=== PATIENT | female | born 1995 | race Caucasian/White ===

== ENCOUNTER 2017-07-09 21:03 | Emergency (ER) | payer OTHER ==
[~2017-07-09] VITALS: Ht 172.7 cm; Wt 54.4 kg
[~2017-07-09 21:03] MED LIST: CIPR-345 PO; DEXL60CA6 PO; LOR5/325 PO
--- NOTE | 2017-07-09 21:08 | ER Report ---
History and Physical Time Seen By MD: 21:07 HPI/ROS CHIEF COMPLAINT: Difficulty swallowing HISTORY OF PRESENT ILLNESS: 22-year-old female presents ambulatory to the ER complaining of throat swelling and difficulty swallowing. She's been sick for approximately 2 days. She's been seen by her primary care physician twice. She says a rapid strep test was not performed. She was diagnosed with blood weeks. Angina. And placed on amoxicillin and prednisone. She's been taking ibuprofen and Tylenol without pain relief. She over the last 12 hours as noted significant increase in the swelling and difficulty swallowing. She denies any difficulty breathing. She denies any nausea or vomiting. REVIEW OF SYSTEMS: Respiratory: No cough, no dyspnea. Cardiovascular: No chest pain, no palpitations. Gastrointestinal: No vomiting, no abdominal pain. Musculoskeletal: No back pain. Allergies: Coded Allergies: No Known Drug Allergies (Unverified , 07/09/17) Home Meds Active Scripts Oxycodone Hcl/Acetaminophen (PERCOCET 5-325 MG TABLET) 1 Each Tablet, 1-2 EACH PO Q4-6H Y for PAIN, #12 Prov:JENNA COULTER DO 07/09/17 Clindamycin Hcl (CLINDAMYCIN HCL) 300 Mg Capsule, 300 MG PO TID for infection, # 20 CAPSULE TAKE 1 CAPSULE EVERY SIX HOURS Prov:JENNA COULTER DO 07/09/17 Reviewed Nurses Notes: Yes Old Medical Records Reviewed: Yes Hx Smoking: No Smoking Status: Never Smoker Constitutional Vital Sign - Last 24 Hours 07/09/17 07/09/17 07/09/17 07/09/17 21:12 21:13 21:18 21:30 Temp 98.4 Pulse 70 82 Resp 14 B/P (MAP) 128/90 128/90 (103) 134/82 (99) Pulse Ox 95 95 O2 Delivery Room Air 07/09/17 07/09/17 07/09/17 07/09/17 21:33 21:48 22:00 22:03 Pulse 75 77 84 B/P (MAP) 136/83 (100) Pulse Ox 95 95 95 07/09/17 07/09/17 07/09/17 07/09/17 22:08 22:23 22:28 22:30 Pulse ? B/P (MAP) 126/84 (98) 131/67 (88) 07/09/17 07/09/17 07/09/17 07/09/17 22:53 23:00 23:08 23:13 Pulse 69 75 71 B/P (MAP) 120/70 (87) Pulse Ox 96 95 96 07/09/17 07/09/17 07/09/17 07/09/17 23:28 23:30 23:35 23:42 Pulse 64 66 B/P (MAP) 115/75 (88) 116/74 (88) Pulse Ox 95 95 Physical Exam General Appearance: The patient is alert, has no immediate need for airway protection and no current signs of toxicity. Vital signs stable, afebrile, mild distress HEENT: Pupils equal and round no injection. TMs normal, TMJs nontender, examination of the oropharynx reveals moderate erythema with minimal edema, and cobblestoning of posterior oral pharynx is no exudate or petechiae noted. Palpation of the anterior neck reveals some tenderness, but no induration of the neck tissues or lymphadenopathy Respiratory: Chest is non tender, lungs are clear to auscultation. Cardiac: regular rate and rhythm Gastrointestinal: Abdomen is soft and non tender, no masses, bowel sounds normal. No sputum megaly Musculoskeletal: Neck: Neck is supple and non tender. As above Extremities have full range of motion and are non tender. Skin: No rashes or lesions. DIFFERENTIAL DIAGNOSIS: After history and physical exam differential diagnosis was considered for tonsillitis, peritonsillar abscess, acute pharyngitis, blood weeks, angina, soft tissue abscess Medical Decision Making Data Points Result Diagram: 07/09/17213407/09/172134 Laboratory Hematology Test 07/09/17 21:35 07/09/17 22:07 Red Blood Count 4.89 M/uL (4.17-5.56) Mean Corpuscular Volume 88.4 fL (80.0-96.0) Mean Corpuscular Hemoglobin 30.1 pg (26.0-33.0) Mean Corpuscular Hemoglobin Concent 34.1 g/dL (32.0-36.0) Red Cell Distribution Width 13.3 % (11.5-14.5) Mean Platelet Volume 7.7 fL (7.2-11.1) Neutrophils (%) (Auto) 70.2 % (39.4-72.5) Lymphocytes (%) (Auto) 20.2 % (17.6-49.6) Monocytes (%) (Auto) 8.1 % (4.1-12.4) Eosinophils (%) (Auto) 0.9 % (0.4-6.7) Basophils (%) (Auto) 0.6 % (0.3-1.4) Nucleated RBC Relative Count (auto) 0.1 /100WBC Neutrophils # (Auto) 5.6 K/uL (2.0-7.4) Lymphocytes # (Auto) 1.6 K/uL (1.3-3.6) Monocytes # (Auto) 0.7 K/uL (0.3-1.0) Eosinophils # (Auto) 0.1 K/uL (0.0-0.5) Basophils # (Auto) 0.0 K/uL (0.0-0.1) Nucleated RBC Absolute Count (auto) 0.00 K/uL Sodium Level 138 mmol/L (137-145) Potassium Level 3.9 mmol/L (3.5-5.0) Chloride Level 104 mmol/L (98-107) Carbon Dioxide Level 20 mmol/L (22-31) Blood Urea Nitrogen 12 mg/dl (7-18) Creatinine 0.80 mg/dl (0.52-1.04) Glomerular Filtration Rate Calc > 60.0 Random Glucose 77 mg/dl (75-110) Calcium Level 9.6 mg/dl (8.4-10.2) Total Bilirubin 0.9 mg/dl (0.2-1.3) Aspartate Amino Transf (AST/SGOT) 29 U/L (0-35) Alanine Aminotransferase (ALT/SGPT) 43 U/L (0-56) Alkaline Phosphatase 96 U/L (0-126) C-Reactive Protein < 0.5 mg/dl (<1.0) Total Protein 7.6 gm/dl (6.3-8.2) Albumin 4.4 g/dl (3.5-5.0) Human Chorionic Gonadotropin, Qual Negative (NEGATIVE) Urine Color Yellow Urine Clarity Cloudy Urine pH 5.0 pH (4.8-9.5) Urine Specific [place]er 1.030 Urine Protein Negative mg/dL (NEGATIVE) Urine Glucose (UA) Negative mg/dL (NEGATIVE) Urine Ketones 20 mg/dL (NEGATIVE) Urine Blood Small (NEGATIVE) Urine Nitrite Negative (NEGATIVE) Urine Bilirubin Negative (NEGATIVE) Urine Urobilinogen Negative mg/dL (0.2-1.9) Urine Leukocyte Esterase Trace (NEGATIVE) Urine RBC 15 /HPF (0-2/HPF) Urine WBC 4 /HPF (0-5/HPF) Urine Squamous Epithelial Cells Many /LPF (</=FEW) Urine Amorphous Crystals Few /HPF Urine Bacteria Few /HPF (NONE-FEW) Urine Mucus Few /HPF (NONE-FEW) Chemistry Test 07/09/17 21:35 07/09/17 22:07 White Blood Count 8.0 k/uL (4.5-11.0) Red Blood Count 4.89 M/uL (4.17-5.56) Hemoglobin 14.7 g/dL (12.0-16.0) Hematocrit 43.2 % (34.0-47.0) Mean Corpuscular Volume 88.4 fL (80.0-96.0) Mean Corpuscular Hemoglobin 30.1 pg (26.0-33.0) Mean Corpuscular Hemoglobin Concent 34.1 g/dL (32.0-36.0) Red Cell Distribution Width 13.3 % (11.5-14.5) Platelet Count 251 K/uL (150-450) Mean Platelet Volume 7.7 fL (7.2-11.1) Neutrophils (%) (Auto) 70.2 % (39.4-72.5) Lymphocytes (%) (Auto) 20.2 % (17.6-49.6) Monocytes (%) (Auto) 8.1 % (4.1-12.4) Eosinophils (%) (Auto) 0.9 % (0.4-6.7) Basophils (%) (Auto) 0.6 % (0.3-1.4) Nucleated RBC Relative Count (auto) 0.1 /100WBC Neutrophils # (Auto) 5.6 K/uL (2.0-7.4) Lymphocytes # (Auto) 1.6 K/uL (1.3-3.6) Monocytes # (Auto) 0.7 K/uL (0.3-1.0) Eosinophils # (Auto) 0.1 K/uL (0.0-0.5) Basophils # (Auto) 0.0 K/uL (0.0-0.1) Nucleated RBC Absolute Count (auto) 0.00 K/uL Glomerular Filtration Rate Calc > 60.0 Calcium Level 9.6 mg/dl (8.4-10.2) Total Bilirubin 0.9 mg/dl (0.2-1.3) Aspartate Amino Transf (AST/SGOT) 29 U/L (0-35) Alanine Aminotransferase (ALT/SGPT) 43 U/L (0-56) Alkaline Phosphatase 96 U/L (0-126) C-Reactive Protein < 0.5 mg/dl (<1.0) Total Protein 7.6 gm/dl (6.3-8.2) Albumin 4.4 g/dl (3.5-5.0) Human Chorionic Gonadotropin, Qual Negative (NEGATIVE) Urine Color Yellow Urine Clarity Cloudy Urine pH 5.0 pH (4.8-9.5) Urine Specific Geyser 1.030 Urine Protein Negative mg/dL (NEGATIVE) Urine Glucose (UA) Negative mg/dL (NEGATIVE) Urine Ketones 20 mg/dL (NEGATIVE) Urine Blood Small (NEGATIVE) Urine Nitrite Negative (NEGATIVE) Urine Bilirubin Negative (NEGATIVE) Urine Urobilinogen Negative mg/dL (0.2-1.9) Urine Leukocyte Esterase Trace (NEGATIVE) Urine RBC 15 /HPF (0-2/HPF) Urine WBC 4 /HPF (0-5/HPF) Urine Squamous Epithelial Cells Many /LPF (</=FEW) Urine Amorphous Crystals Few /HPF Urine Bacteria Few /HPF (NONE-FEW) Urine Mucus Few /HPF (NONE-FEW) Urinalysis Test 07/09/17 22:07 Urine Color Yellow Urine Clarity Cloudy Urine pH 5.0 pH (4.8-9.5) Urine Specific Geyser 1.030 Urine Protein Negative mg/dL (NEGATIVE) Urine Glucose (UA) Negative mg/dL (NEGATIVE) Urine Ketones 20 mg/dL (NEGATIVE) Urine Blood Small (NEGATIVE) Urine Nitrite Negative (NEGATIVE) Urine Bilirubin Negative (NEGATIVE) Urine Urobilinogen Negative mg/dL (0.2-1.9) Urine Leukocyte Esterase Trace (NEGATIVE) Urine RBC 15 /HPF (0-2/HPF) Urine WBC 4 /HPF (0-5/HPF) Urine Squamous Epithelial Cells Many /LPF (</=FEW) Urine Amorphous Crystals Few /HPF Urine Bacteria Few /HPF (NONE-FEW) Urine Mucus Few /HPF (NONE-FEW) EKG/Imaging Imaging Results: CT scan of the soft tissue neck with IV contrast was obtained. The results of the study are CT neck with contrast Comparison: None Additional pertinent history: Severe pharyngitis with difficulty swallowing. TECHNIQUE: Multiple axial images were obtained from the mid portion of the brain through the superior mediastinum with IV contrast. Coronal and sagittal reformatted images were obtained off the axial source data. One of the following dose optimization techniques was utilized in the performance of this exam: Automated exposure control; adjustment of the mA and/or kV according to the patient's size; or use of an iterative reconstruction technique. Specific details can be referenced in the facility's radiology CT exam operational policy. CONTRAST: 75 mL of Isovue-370 FINDINGS: Visualized portions of the brain parenchyma:Negative Parotid glands/submandibular glands/thyroid: Low-attenuation lesion involving the right lobe of the thyroid measuring 7 mm which may represent a small colloid cyst. Given the size no further follow-up is needed. Orbits: Negative Paranasal sinuses: Negative Parapharyngeal spaces: Negative Nasopharynx/oropharynx/hypopharynx: Negative Tonsillar pillars: Negative Oral tongue/tongue base: Negative True and false cords: Negative Lymph node assessment: Few small scattered nonpathologically enlarged lymph nodes within the neck likely reactive. Surrounding soft tissues: Negative Vasculature: Negative Osseous structures: Negative IMPRESSION: 1. No evidence of acute process involving the neck. 2. Specifically no evidence of underlying abscess or significant inflammatory process noted on today's exam. The study was read by the radiologist. I viewed the images myself on the PACS system. ED Course/Re-evaluation Clinical Indication for ER IV: Hydration, IV Access ED Course Patient was admitted to an examination room. H&P was done. The differential diagnoses was considered. On clinical examination. Patient has no oral pharyngeal swelling other than mild edema. There is no peritonsillar abscess or uvular deviation. There is no 8. There is no induration of the neck tissues. There is moderate tenderness of the anterior cervical chain tissues. Due to the accelerated development of symptoms. A CT scan of the neck was performed to rule out abscess or mass formation. She was treated with IV fluids , Toradol, fentanyl, Decadron 10 mg and Zofran. Patient be discharged home on clindamycin 3 to milligrams 3 times a day. She was given Percocet for pain control. Patient's advised to follow-up with her primary care if unimproved in 3-5 days. Decision to Disposition Date: Jul 09, 2017 Decision to Disposition Time: 23:34 Depart Departure Latest Vital Signs Vital Signs Date Time Temp Pulse Resp B/P (MAP) Pulse Ox O2 Delivery O2 Flow Rate FiO2 07/09/17 23:42 116/74 (88) 07/09/17 23:35 66 95 07/09/17 21:12 98.4 14 Room Air Impression: Primary Impression: Pharyngitis Additional Impression: Swallowing difficulty Condition: Improved Disposition: HOME OR SELF-CARE Referrals: MARCELO ARGUETA (PCP) New Scripts Oxycodone Hcl/Acetaminophen (PERCOCET 5-325 MG TABLET) 1 Each Tablet 1-2 EACH PO Q4-6H Y for PAIN, #12 Prov: JENNA COULTER DO 07/09/17 Clindamycin Hcl (CLINDAMYCIN HCL) 300 Mg Capsule 300 MG PO TID for infection, #20 CAPSULE TAKE 1 CAPSULE EVERY SIX HOURS Prov: JENNA COULTER DO 07/09/17 Patient Instructions: Pharyngitis (ED) Additional Instructions: Take ibuprofen 200 mg 3-4 tablets 3 times a day with food Take clindamycin 300 mg 3 times daily with a large glass of water or juice Follow-up with your primary care if unimproved in 3-5 days Problem Qualifiers Primary Impression: Pharyngitis Pharyngitis/tonsillitis etiology: unspecified etiology Qualified Codes: J02.9 - Acute pharyngitis, unspecified Additional Impression: Swallowing difficulty Dysphagia type: unspecified Qualified Codes: R13.10 - Dysphagia, unspecified JENNA COULTER DO Jul 09, 2017 21:08
[2017-07-09] MEDS ORDERED: KETOROLAC 30 MG/ML VIAL IVP ONE (21:25)
[2017-07-09] MEDS ORDERED: NS(*) 0.9% 1000 ML BAG 1,000 ML IV ONE (21:25)
[2017-07-09] MEDS ORDERED: DEXAMETHASONE SOD PHOS 10MG/ML IVP ONE (21:25)
[2017-07-09] MEDS ORDERED: fentaNYL CITR 100 MCG/2 ML AMP IVP ONE (21:25)
[2017-07-09] MEDS ORDERED: ONDANSETRON 4 MG/2 ML VIAL IVP ONE (21:25)
[2017-07-09] MEDS ORDERED: NS 0.9% 20 ML SDV 40 ML ONE (21:35)
[2017-07-09] MEDS ORDERED: IOPAMIDOL 76% 75 ML INFUS BTL 75 ML ONE (21:35)
[2017-07-09 21:50] LABS: PLATELET COUNT, AUTOMATED 251 K/uL (150-450)
--- NOTE | 2017-07-09 23:05 | RADIOLOGY IMAGING REPORT ---
FACILITY: [facility] - [place] PATIENT NAME: Hortensia Paul : 1995 MR: [id number] V: [id number] EXAM DATE: ORDERING PHYSICIAN: JENNA COULTER TECHNOLOGIST: [place] [facility] [place] Hortensia Paul : 1995 Visit/Account:[id number] Date of Sevice: 07/09/2017 CT neck with contrast Comparison: None Additional pertinent history: Severe pharyngitis with difficulty swallowing. TECHNIQUE: Multiple axial images were obtained from the mid portion of the brain through the superio r mediastinum with IV contrast. Coronal and sagittal reformatted images were obtained off the axial source data. One of the following dose optimization techniques was utilized in the performance of t his exam: Automated exposure control; adjustment of the mA and/or kV according to the patient's size; or use of an iterative reconstruction technique. Specific details can be referenced in the [facility]'s radiology CT exam operational policy. CONTRAST: 75 mL of Isovue-370 FINDINGS: Visualized portions of the brain parenchyma:Negative Parotid glands/submandibular glands/thyroid: Low-attenuation lesion involving the right lobe of the thyroid measuring 7 mm which may represent a small colloid cyst. Given the size no further follow-up is needed. Orbits: Negative Paranasal sinuses: Negative Parapharyngeal spaces: Negative Nasopharynx/oropharynx/hypopharynx: Negative Tonsillar pillars: Negative Oral tongue/tongue base: Negative True and false cords: Negative Lymph node assessment: Few small scattered nonpathologically enlarged lymph nodes within the neck lik navid reactive. Surrounding soft tissues: Negative Vasculature: Negative Osseous structures: Negative IMPRESSION: 1. No evidence of acute process involving the neck. 2. Specifically no evidence of underlying abscess or significant inflammatory process noted on today' s exam. Report Dictated By: Aleksey Chris MD at 07/09/2017 10:54 PM Report E-Signed By: Aleksey Chris MD at 07/09/2017 10:59 PM WSN:[id number]
[2017-07-09] MEDS ORDERED: CLINDAMYCIN 150 MG CAP PO ONE (23:35)
[2017-07-09] MEDS ORDERED: oxyCODONE/ACETAMIN 5/325MG TH 2 TAB/BOTTLE PO ONE ×2 (23:35)
[2017-07-09] MEDS ORDERED: OXYC-865 PO (23:37)
[2017-07-09] MEDS ORDERED: CLIN300C99 PO (23:37)
[2017-07-09 23:42] VITALS: BP 116/74
== END 2017-07-09 23:46 | disposition home or self-care (01) ==
LOC: ER 21:20
DX: J02.9 Acute pharyngitis, unspecified (principal)
CPT/HCPCS: 70491; 81001; 84703; 85025; 86140; 96361; 96374; 96375; 99284; J1100; J1885; J2405; J3010; J7030; J7050; Q9967; 82040; 82247; 82310; 82374; 82435; 82565; 82947; 84075; 84132; 84155; 84295; 84450; 84460; 84520

== ENCOUNTER → 2017-07-21 | Outpatient (REF) | payer OTHER ==
[~2017-07-21] MED LIST changes: +CLIN300C99 PO; +OXYC-865 PO
[2017-07-21 13:29] LABS: PLATELET COUNT, AUTOMATED 329 K/uL (150-450)
== END ==
PROVIDERS: ATTEND Physician Assistant Medical
DX: R19.7 Diarrhea, unspecified (principal)
CPT/HCPCS: 82040; 82247; 82310; 82374; 82435; 82565; 82947; 84075; 84132; 84155; 84295; 84450; 84460; 84520; 85025

== ENCOUNTER → 2017-07-25 | Outpatient (REF) | payer OTHER | PROVIDERS: ATTEND Physician Assistant Medical | DX: R19.7 Diarrhea, unspecified (principal) | CPT/HCPCS: 87045; 87324; 87449 ==

== ENCOUNTER 2018-12-27 15:43 | Emergency (ER) | payer OTHER ==
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
[2018-12-27] MEDS ORDERED: APAP/HYDROCODONE 325/5 TAB PO ONE (16:00)
[2018-12-27 16:30] VITALS: BP 123/82
--- NOTE | 2018-12-27 16:33 | RADIOLOGY IMAGING REPORT ---
[place] [facility] [place] NAME: Hortensia Paul : 1995 MR: [id number] V: [id number] EXAM DATE: ORDERING PHYSICIAN: HIREN GARAY TECHNOLOGIST: Location: [facility] [place] Patient: Hortensia Paul : 1995 Visit/Account:[id number] Date of Sevice: 12/27/2018 XR WRIST 3 OR MORE VIEWS LT Indication: Pain after fall, wrist pain Comparison: July 03, 2013 Findings: No evidence of fracture, dislocation, or acute osseous abnormality left wrist. No evidence of radiopaque foreign body. There is no focal soft tissue abnormality. IMPRESSION: 1. No acute osseous abnormality left wrist. Report Dictated By: Wilfrid Baca at 12/27/2018 4:23 PM Report E-Signed By: Wilfrid Baca at 12/27/2018 4:24 PM WSN:[id number]
== END 2018-12-27 16:50 | disposition home or self-care (01) ==
LOC: ER 15:47
DX: S63.502A Unspecified sprain of left wrist, initial encounter (principal)
CPT/HCPCS: 99283; L3908